=== PATIENT | female | born 1975 | race Caucasian/White ===

== ENCOUNTER 2016-06-21 01:46 | Emergency (ER) | payer OTHER ==
[2016-06-21 02:26] VITALS: BMI 27.3
[2016-06-21] MEDS ORDERED: SODIUM CHLORIDE 1,000 ML IV STA (03:46)
[2016-06-21] MEDS ORDERED: FAMOTIDINE 20 MG/50 ML IVPB 50 ML IVPB ONE ×2 (03:46→03:50)
[2016-06-21 04:10] LABS: BASOPHIL 0.9 % (0-2.0); EOSINOPHIL 0.8 % (0-4.5); MCH 29.3 pg (25.7-33.7); MCHC 33.7 g/dl (32.0-36.0); MEAN CELL VOLUME 87.1 fl (80-96); MEAN PLT VOLUME 10.5 fl (7.5-11.1); PLATELET COUNT 292 K/MM3 (134-434); RDW 12.9 % (11.6-15.6); WHITE BLOOD COUNT 11.6 K/mm3 (4.0-10.0)
[2016-06-21 04:36] LABS: ALBUMIN 3.8 g/dl (3.4-5.0); ALK PHOS 82 U/L (45-117); ANION GAP 8 (8-16); BILIRUBIN,TOTAL 0.8 mg/dL (0.2-1.0); CALCIUM 8.8 mg/dL (8.5-10.1); CO2 28 mmol/L (21-32); CREATININE 0.9 mg/dL (0.55-1.02); GLUCOSE,RANDOM 99 mg/dL (74-106); SGOT/AST 18 U/L (15-37); SGPT/ALT 25 U/L (12-78); TOT PROT 7.9 g/dl (6.4-8.2)
--- NOTE | 2016-06-21 04:59 | PDOC ---
History of Present Illness - General Chief Complaint: Blood Pressure Problem Stated Complaint: HIGH BP Time Seen by Provider: 06/21/16 02:36 History Source: Patient, Digital Computer Systems Analyst Used Exam Limitations: Language Barrier - History of Present Illness Initial Comments: 06/21/16 04:55 40yo Female patient presents to ED c/o anxiety, HTN, trouble sleeping, hot flashes and chills, abd pain h/a for past week. She does not remember her last BM. LNMP: June 13. Patient with multiple complaints. She was just recently prescribed Viibryd. Patient denies any other complaints at this time. Timing/Duration: 1 week Past History - Travel Traveled outside of the country in the last 30 days: No Close contact w/someone who was outside of country & ill: No - Past Medical History Allergies/Adverse Reactions: Allergies Allergy/AdvReac Type Severity Reaction Status Date / Time No Known Allergies Allergy Verified 06/21/16 02:24 Home Medications: Ambulatory Orders Hydrochlorothiazide [Hctz -] 12.5 mg PO DAILY 06/21/16 Losartan Potassium 50 mg PO DAILY 06/21/16 Pantoprazole Sodium 40 mg PO DAILY 06/21/16 Vilazodone HCl [Viibryd] 1 each PO DAILY 06/21/16 HTN: Yes - Surgical History Cholecystectomy: Yes - Psycho/Social/Smoking Cessation Hx Anxiety: No Suicidal Ideation: No Smoking History: Never smoked Have you smoked in the past 12 months: No Information on smoking cessation initiated: No Hx Alcohol Use: No Drug/Substance Use Hx: No Substance Use Type: None Review of Systems - Review of Systems Able to Perform ROS?: Yes Is the patient limited [place]er proficient: No Constitutional: No: Chills, Fever HEENTM: No: Blurred Vision, Double Vision, Nose Bleeding, Throat Pain, Mouth Swelling Respiratory: No: Cough, Shortness of Breath, Stridor, Wheezing Cardiac (ROS): No: Chest Pain, Palpitations, Syncope, Chest Tightness ABD/GI: No: Constipated, Diarrhea, Nausea, Poor Appetite, Poor Fluid Intake, Rectal Bleeding, Vomiting : No: Dysuria, Discharge, Flank Pain, Hematuria, Pain Musculoskeletal: No: Back Pain Integumentary: No: Bruising, Erythema, Rash Neurological: No: Headache All Other Systems: Reviewed and Negative *Physical Exam - Vital Signs Last Vital Signs Temp Pulse Resp BP Pulse Ox 97.6 F 84 14 150/101 100 06/21/16 02:24 06/21/16 02:24 06/21/16 02:24 06/21/16 02:24 06/21/16 02:24 - Physical Exam General Appearance: Yes: Nourished, Appropriately Dressed. No: Apparent Distress, Mild Distress, Moderate Distress, Severe Distress Neck: positive: Trachea midline, Supple. negative: Normal Thyroid, Decreased range of motion, Stridor, Lymphadenopathy (R), Lymphadenopathy (L) Respiratory/Chest: positive: Lungs Clear, Normal Breath Sounds. negative: Chest Tender, Respiratory Distress, Accessory Muscle Use, Labored Respiration, Rapid RR Cardiovascular: positive: Regular Rhythm, Regular Rate Gastrointestinal/Abdominal: positive: Normal Bowel Sounds, Soft. negative: Distended, Guarding, Rebound, Tenderness Musculoskeletal: positive: Normal Inspection. negative: CVA Tenderness Extremity: positive: Normal Capillary Refill, Normal Inspection, Normal Range of Motion. negative: Pedal Edema, Swelling, Calf Tenderness, Erythema, Inflammation Integumentary: positive: Normal Color, Dry, Warm Neurologic: positive: aircraft metalsmith II-XII NML intact, Fully Oriented, Alert, Normal Mood/ Affect, Normal Response, Motor Strength 06/22 ED Treatment Course - LABORATORY CBC & Chemistry Diagram: 06/21/16 04:01 06/21/16 04:01 - ADDITIONAL ORDERS Additional order review: Laboratory Results 06/21/16 04:01 Sodium 140 Potassium 3.6 Chloride 104 Carbon Dioxide 28 D Anion Gap 8 BUN 11 Creatinine 0.9 Creat Clearance w eGFR > 60 Random Glucose 99 Calcium 8.8 Total Bilirubin 0.8 D AST 18 D ALT 25 D Alkaline Phosphatase 82 Total Protein 7.9 Albumin 3.8 06/21/16 04:01 RBC 4.59 MCV 87.1 MCHC 33.7 RDW 12.9 MPV 10.5 Neutrophils % 70.0 Lymphocytes % 19.2 D Monocytes % 9.1 Eosinophils % 0.8 Basophils % 0.9 - Medications Given in the ED: ED Medications Discontinued Medications Generic Name Dose Route Start Last Admin Trade Name Freq PRN Reason Stop Dose Admin Famotidine/Sodium Chloride 50 mls @ 100 mls/hr 06/21/16 03:46 06/21/16 04:07 Pepcid 20 Mg Premixed Ivpb - IVPB 06/21/16 04:15 100 mls/hr ONCE ONE Administration Sodium Chloride 1,000 mls @ 1,000 mls/hr 06/21/16 03:46 06/21/16 04:06 Normal Saline - IV 06/21/16 04:45 1,000 mls/hr ASDIR STA Administration *DC/Admit/Observation/Transfer Diagnosis at time of Disposition: Anxiety Hypertension Qualifiers: Hypertension type: other secondary hypertension Qualified Code(s): I15.8 - Other secondary hypertension - Discharge Dispostion Disposition: HOME Condition at time of disposition: Improved Admit: No - Patient Instructions Printed Discharge Instructions: DI for High Blood Pressure, How to Monitor Your Blood Pressure at Home Additional Instructions: FOLLOW UP WITH YOUR DOCTOR NEEDED. Print Language: TAJIK
[2016-06-21 05:35] LABS: URINE APPEARANCE CLEAR; URINE BILIRUBIN NEGATIVE (NEGATIVE); URINE BLOOD NEGATIVE (NEGATIVE); URINE COLOR YELLOW; URINE GLUCOSE (UA) NEGATIVE (NEGATIVE); URINE KETONE NEGATIVE (NEGATIVE); URINE NITRITE NEGATIVE (NEGATIVE); URINE PROTEIN NEGATIVE (NEGATIVE); URINE UROBILINOGEN NEGATIVE E.U./dl (0.2-1.0)
[2016-06-21 05:47] LABS: URINE LEUK ESTERASE TRACE (NEGATIVE)
[2016-06-21 05:50] LABS: URINE MUCUS RARE; URINE RBC 1 /hpf (0-3); URINE WBC 2 /hpf (3-5)
[2016-06-21 06:06] VITALS: BP 129/84; PULSE 77; TEMP 98.1
== END 2016-06-21 06:10 | disposition home or self-care (01) ==
LOC: JER 01:46
PROC: 3E033GC Introduction of Other Therapeutic Substance into Peripheral Vein, Percutaneous Approach (ICD-10-PCS; principal; 2016-06-21)
DX: F41.9 Anxiety disorder, unspecified (principal); I15.8 Other secondary hypertension
CPT/HCPCS: 36415; 80053; 81003; 81015; 84703; 85025; 87086; 99281-25

== ENCOUNTER 2017-08-25 00:42 | Emergency (ER) | payer OTHER ==
[2017-08-25 01:14] VITALS: BMI 29.9
--- NOTE | 2017-08-25 03:22 | PDOC ---
History of Present Illness - General Chief Complaint: Pain Stated Complaint: L SIDED FACIAL PAIN Time Seen by Provider: 08/25/17 03:22 History Source: Patient Exam Limitations: No Limitations - History of Present Illness Initial Comments: 08/25/17 03:42 42 year old female with no past medical history presents to ED with 3 days of left ear pain, left sided facial fullness and feeling off balance. She denies fever, chills, nausea, vomiting, diarrhea, abdominal pain, dysuria. She denies sick contacts. 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 She states she took 50 mg Tylenol today without resolution of her symptoms. Past History - Past Medical History Allergies/Adverse Reactions: Allergies Allergy/AdvReac Type Severity Reaction Status Date / Time No Known Allergies Allergy Verified 08/25/17 06:25 Home Medications: Ambulatory Orders NK [No Known Home Medication] 08/25/17 HTN: Yes - Surgical History Cholecystectomy: Yes - Suicide/Smoking/Psychosocial Hx Smoking History: Never smoked Have you smoked in the past 12 months: No Information on smoking cessation initiated: No Hx Alcohol Use: No Drug/Substance Use Hx: No Substance Use Type: None Review of Systems - Review of Systems Able to Perform ROS?: Yes (ROS via cake inspector) Comments:: 08/25/17 03:46 General: denies for fever, chills, night sweats, generalized weakness. HEENT: admits to left ear pain and sore throat. Neck: positive for neck swelling and pain. Heart: denies for chest pain, palpitations, syncope, lower extremity swelling. Respiratory: denies shortness of breath, cough, sputum production, hematemesis. Abdomen: denies for abdominal pain, nausea, vomiting, diarrhea, constipation, blood in stool. : denies for dysuria, urinary frequency, hematuria. Musculoskeletal: denies for joint pain, muscle pain, joint swelling. Neurological: admits to dysequilibrium. denies for headache, dizziness, numbness , tingling. Skin: denies for rash, laceration, abrasion. Is the patient limited [place]er proficient: Yes *Physical Exam - Vital Signs Last Vital Signs Temp Pulse Resp BP Pulse Ox 98.7 F 65 18 159/92 99 08/25/17 01:12 08/25/17 01:12 08/25/17 01:12 08/25/17 01:12 08/25/17 01:12 - Physical Exam Comments: 08/25/17 03:47 General: awake, alert and oriented X3, no apparent distress HEENT: left sided mastoid area swelling noted. EOMI. PERRLA. Bilateral TM no erythema or bulging noted. Posterior pharynx non-erythematous. Tonsillar swelling 2+. No exudates. Buccal mucosa moist and pink. Neck: left sided tenderness Heart: regular rhythm. no murmurs, rubs or gallops. Lungs: clear to auscultation bilaterally. no crackles, rhonchi or wheezing. no stridor. Abdomen: soft, nontender. normal bowel sounds. no rebound, guarding, masses. Extremities: Peripheral pulses intact. No leg edema. Neurological: Alert. Oriented x3. CN 2-12 intact. 5/5 strength all extremities. Pt walked back and forth with no difficulty with ambulation, patient was not off balance and did not feel as though she would fall. Romberg negative. 08/25/17 06:33 Medical Decision Making - Medical Decision Making 08/25/17 04:00 Patient is afebrile. Pending rapid strep test. 08/25/17 04:52 Rapid strep test sent to lab 08/25/17 06:11 Called lab, they reported that the Rapid Strep test is negative and they will result it on the computer soon. 08/25/17 06:[address] head and neck 08/25/17 07:34 Pt signed out to Dr. Huma Curry. *DC/Admit/Observation/Transfer Diagnosis at time of Disposition: Ear pain Diagnosis at time of Disposition: (Ruled Out): Otitis media - Discharge Dispostion Disposition: HOME Condition at time of disposition: Stable Decision to Admit order: No - Referrals - Patient Instructions - Post Discharge Activity
--- NOTE | 2017-08-25 03:23 | PDOC ---
Attending Attestation - HPI HPI: 08/25/17 06:35 The patient is a 42 year old female with no past medical history who presents to the ED for evaluation of left ear pain. The patient reports left ear pain since . Pt reports associated symptoms of sore throat and lack of balance. The patient note shes stays home with the kids. Pt reports taking Tylenol with no alleviation to symptoms. Denies sick contact. The patient denies chest pain, abdominal pain, fever, chills, nausea, vomiting, diarrhea, and dysuria. She denies sick contacts. Allergies: NKDA Social History: No reported alcohol, cigarette, or drug use. <Roxie Siegel - Last Filed: 08/25/17 06:35> - Resident Resident Name: Analia Mercado - ED Attending Attestation I have performed the following: I have examined & evaluated the patient, The case was reviewed & discussed with the resident, I agree w/resident's findings & plan - HPI HPI: 08/25/17 06:52 Pt tells me that she has posterior left ear pain. SHe may have a mastoiditis. She also has upper left eyelid rash - unclear to me if it is bacterial or fungal. Pt has no TM redness or OM. Pt also complains of sore throat. She has some pharyngeal redness, but her rapid strep is negative. - Physicial Exam PE: 08/25/17 06:54 Pt has no OM. Pt has swelling and tenderness behind the left ear. Pt has pharyngeal erythema. Pt is warm to the touch. - Medical Decision Making 08/25/17 06:55 CT head/mastoids pending. r/o mastoiditis, Pt complains of left neck tenderness. She will have soft tissue neck XR. <Gloria Patton - Last Filed: 08/26/17 04:49> Attestations - Attestations Documentation prepared by Roxie Siegel, acting as medical intern for Gloria Patton MD. <Roxie Siegel - Last Filed: 08/25/17 06:35>
[2017-08-25] MEDS ORDERED: ACYCLOVIR 400 MG TABLET PO ONE (08:09)
--- NOTE | 2017-08-25 08:16 | PDOC ---
*Physical Exam - Vital Signs Last Vital Signs Temp Pulse Resp BP Pulse Ox 98.7 F 65 18 159/92 99 08/25/17 01:12 08/25/17 01:12 08/25/17 01:12 08/25/17 01:12 08/25/17 01:12 08/25/17 08:09 Care endorsed to me by Drs. Mercado and Abdi at the end of their shifts. Patient is a 42 YOF who p/w left facial pain and patchy rash. Additionally has pain to left neck, left mastoid, left ear. Pending CT head and facial bones. 08/25/17 08:16 On my exam patient has a very early vesicular-appearing lesion just superior to the left medial eyebrow, about 1x1cm, ttp, additional skin ttp of the left face especially involving the erythematous patches, left mastoid tenderness to percussion and mild swelling. Ordered is 400 mg Acyclovir, Pt placed in Room 8 isolation, pending non-contrast CT temporal bones r/o mastoiditis. 08/25/17 11:48 Black light exam with tetracaine and fluorescein shows no dendtiric lesions or other acute abnormalities. Acuity equal bilaterally. TMs and EACs clear. ED Treatment Course - ADDITIONAL ORDERS Additional order review: 08/25/17 04:45 Group A Strep Rapid Antigen - Final Throat - Medications Given in the ED: ED Medications Discontinued Medications Generic Name Dose Route Start Last Admin Trade Name Carterq PRN Reason Stop Dose Admin Oxycodone/Acetaminophen 2 combo 08/25/17 06:55 08/25/17 07:10 Percocet 5/325 - PO 08/25/17 06:56 2 combo ONCE ONE Administration Medical Decision Making - Medical Decision Making 08/25/17 10:50 Adult patient p/w left periorbital, facial, and ear pain with patchy erythematous rash with few vesicles Initial Vital Signs Temp Pulse Resp BP Pulse Ox 98.7 F 65 18 159/92 99 08/25/17 01:12 08/25/17 01:12 08/25/17 01:12 08/25/17 01:12 08/25/17 01:12 Exam: Results as noted in Physical Exam section. DDX IBNLT: zoster (c/f HSV oticus, Pancho-Adrian syndrome), cluster headache, other primary headache, facial/preseptal cellulitis, otitis media (serous versus infectious), otitis externa (c/f malignant OE), trauma, tympanic membrane rupture, foreign body, etc W/U ordered: Temporal bone CT to r/o mastoiditis [place] ordered: Acyclovir (patient received pain medications prior to the start of my shift) Laboratory Tests 08/25/17 07:29 Urine HCG, Qual Negative CT Temporal Bones with IV Contrast: Nothing acute. On eye exam with tetracaine, fluorescein, and black light, there are no dendritic lesions or other abnormalities. Reassessment: Patient feels improved, will hot die picker Acyclovir Rx and take. Vital Signs Temperature 98.1 F 08/25/17 11:27 Pulse Rate 54 L 08/25/17 11:27 Respiratory Rate 16 08/25/17 11:27 Blood Pressure 138/68 08/25/17 11:27 O2 Sat by Pulse Oximetry (%) 98 08/25/17 11:27 DISCHARGE The Pt has gotten significant relief of symptoms with ED medications. Workup is not concerning for emergency-level pathology at this time. The Pt is appropriate for discharge with close outpatient follow up. They are comfortable with this plan and will follow up with their PCP in 1-3 days. E-Rx sent to pharmacy for Acyclovir. Specific return precautions are discussed and they will come back to the ER if necessary. *DC/Admit/Observation/Transfer Diagnosis at time of Disposition: Herpes zoster Qualifiers: Herpes zoster complications: without complications Qualified Code(s): B02.9 - Zoster without complications - Discharge Dispostion Disposition: HOME Condition at time of disposition: Stable Decision to Admit order: No - Prescriptions Prescriptions: Acyclovir [Zovirax -] 400 mg PO TID #27 tablet - Referrals Referrals: [facility] [place] [Provider Group] - Patient Instructions Printed Discharge Instructions: DI for Shingles Additional Instructions: You were seen in the ER for facial pain, ear pain, and neck pain with a facial rash. We did an exam and a CT scan. We believe you have herpes zosster (shingles ) which is a virus. We gave a dose of antiviral medication here in the ER and are sending an electronic prescription to your pharmacy for a course of this medication. After our assessment, we do not believe there is a medical emergency at this time, and we believe it is safe to go home. Please hot die picker the antiviral from the pharmacy and take the whole course, whether or not the symptoms resolve. Take Motrin and Tylenol as you need them for pain. Please follow up with your regular PCP doctor in 1-3 days. Call their clinic as soon as possible, tell them you were seen in the ER, and tell them you need an appointment. If there are any new or worsening symptoms, please come back to the ER at any time (24 hours a day). If the symptoms appear severe or life- threatening, please call 911 to have an ambulance take you to the ER. Usted fue visto en la osman de urgencias por dolor facial, dolor de odo y dolor de alessandro con evelia erupcin facial. Hicimos un examen y evelia tomografa computarizada. Creemos que tiene herpes zster (herpes zster) que es un virus. Le dimos evelia dosis de medicamentos antivirales aqu en la osman de emergencias y estamos enviando evelia receta electrnica a shelby farmacia para aristeo lindy medicamento. Despus de nuestra evaluacin, no creemos que haya evelia emergencia mdica en lindy momento, y creemos que es seguro irse a casa. Recoja el antiviral de la farmacia y tome todo el curso, ya sea que los sntomas desaparezcan o no. Gaylord Motrin y Tylenol cuando los necesite para el dolor. Realice un seguimiento con shelby mdico PCP regular en 1-3 hoffman. Llame a shelby clnica lo antes posible, dgales que lo vieron en la osman de emergencias y dgales que necesita evelia roxana. Si hay sntomas nuevos o que empeoran, vuelva a la osman de emergencias en cualquier momento (las 24 horas del da). Si los sntomas parecen graves o ponen en peligro la sagrario, llame al 911 para que evelia ambulancia lo lleve a la osman de emergencias. Print Language: MOHAWK - Post Discharge Activity
[2017-08-25] MEDS ORDERED: ACYCLOVIR 200 MG CAPSULE ONE (08:21)
[2017-08-25] MEDS ORDERED: FLUORESCEIN NA 1 EA STRIP OS ONE (11:20)
[2017-08-25] MEDS ORDERED: TETRACAINE 0.5% HCL 0.6ML DROPPER.BOTTLE OS ONE (11:20)
[2017-08-25] MEDS ORDERED: FLUORESCEIN NA 1 EA STRIP ONE (11:25)
[2017-08-25] MEDS ORDERED: TETRACAINE 0.5% OPHTH SOLN 2 ML BOTTLE ONE (11:25)
[2017-08-25 11:28] VITALS: BP 138/68; PULSE 54; TEMP 98.1
== END 2017-08-25 12:14 | disposition home or self-care (01) ==
LOC: JER 00:42
DX: H66.92 Otitis media, unspecified, left ear (principal)
CPT/HCPCS: 70480-TC; 84703; 87070; 87430; 99282-25